=== PATIENT | female | born 1975 | race Caucasian/White ===

== ENCOUNTER 2018-04-12 06:47 | Day surgery (SDC) | payer BC, OTHER ==
[~2018-04-12 06:47] MED LIST: CEFAZOLIN 2 GM/50 ML (PMX) 50 ML IVPB
[2018-04-12] MEDS: GABAPENTIN 300 MG CAP PO (07:58)
[2018-04-12] MEDS: traMADol 50 MG TAB PO (07:59)
[2018-04-12] MEDS: LEVETIRACETAM 1000 MG (PMX) 100 ML IVPB (08:03)
[2018-04-12] MEDS ORDERED: MEPERIDINE 100 MG INJ (08:46)
[2018-04-12] MEDS ORDERED: LIDOCAINE 2% (SDV) 5 ML INJ (08:46)
[2018-04-12] MEDS ORDERED: CEFAZOLIN 1 GM INJ (08:46)
[2018-04-12] MEDS ORDERED: PROPOFOL 20 ML (08:46)
[2018-04-12] MEDS ORDERED: ONDANSETRON 4 MG INJ (08:47)
[2018-04-12] MEDS ORDERED: METOCLOPRAMIDE 10 MG INJ (08:47)
[2018-04-12] MEDS: TRANEXAMIC ACID 1,000 MG in DEXTROSE 5% 100 ML IVPB (09:22)
[2018-04-12] MEDS ORDERED: EPHEDrine SULFATE 50 MG/5 ML SYG (09:51)
[2018-04-12] MEDS: BUPIVACAINE 0.5% (SDV) 30 ML, morphine SULFATE (PF) 8 MG, EPINEPHrine 0.3 MG, KETOROLAC... IRR (09:59)
[2018-04-12] MEDS ORDERED: METOCLOPRAMIDE 10 MG INJ IV (11:00)
[2018-04-12] MEDS ORDERED: MEPERIDINE 25 MG INJ IV (11:00)
[2018-04-12] MEDS ORDERED: hydrALAzine 20 MG INJ IV (11:00)
[2018-04-12] MEDS ORDERED: LABETALOL HCL 20MG INJ IV (11:00)
[2018-04-12] MEDS ORDERED: OXYCODONE/ACETAMINOPHEN (5/325) TAB PO ×2 (11:00)
[2018-04-12] MEDS ORDERED: DIPHENHYDRAMINE 50 MG INJ IV (11:00)
[2018-04-12] MEDS ORDERED: HYDROmorphONE 1 MG/5 ML IV SYRINGE IV (11:00)
[2018-04-12] MEDS ORDERED: MIDAZOLAM 1 MG/ML 2 ML INJ IV (11:00)
[2018-04-12] MEDS ORDERED: EPHEDrine SULFATE 50 MG/5 ML SYG IV (11:00)
[2018-04-12] MEDS: HYDROmorphONE 1 MG/5 ML IV SYRINGE IV ×2 (11:07→11:21)
[2018-04-12] MEDS: ONDANSETRON 4 MG INJ IV (11:08)
== END 2018-04-12 12:36 | disposition home or self-care (01) ==
LOC: SDS 06:47
DX: S73.191A Other sprain of right hip, initial encounter (principal); M25.251 Flail joint, right hip; M94.251 Chondromalacia, right hip; G40.909 Epilepsy, unspecified, not intractable, without status epilepticus; Z88.8 Allergy status to other drugs, medicaments and biological substances; Z91.040 Latex allergy status; X58.XXXA Exposure to other specified factors, initial encounter
CPT/HCPCS: 29916; 73501; 73530; 84703